=== PATIENT | female | born 1940 | race Caucasian/White ===

== ENCOUNTER → 2016-07-23 | Outpatient (CLI) | payer MEDICARE, BC ==
[~2016-07-23] MED LIST: ASPI325T32 PO; NEBI5TAB9 PO; PANT40TA3 PO; PROBIOTIC PO; RALO60TA12 PO; TRAM-40 PO
--- NOTE | 2016-07-23 14:33 | RADRPT ---
PROCEDURE: XR pelvis/left hip. CLINICAL INDICATION: Hip pain TECHNIQUE: AP pelvis/AP and lateral left hip views performed. COMPARISON: 04/21/2015 FINDINGS: There is a left total hip replacement. There is no evidence of loosening of the prosthesis. There is mild right hip osteoarthrosis. This is associated with joint space narrowing, subchondral s clerosis and osteophytosis. There is normal osseous mineralization. No fractures or osseous lesion s are identified. The soft tissues are unremarkable. IMPRESSION: Left total hip replacement. Mild right hip osteoarthrosis. RPTAT: [facility] .Storm Bender MD, Date Time Electronically viewed and signed by .Storm Bender MD, on 07/23/2016 14:32 .B/
== END | disposition home or self-care (01) ==
LOC: HKI 14:00
PROVIDERS: ATTEND Orthopaedic Surgery
DX: M51.36 Other intervertebral disc degeneration, lumbar region (principal); M54.16 Radiculopathy, lumbar region; Z96.642 Presence of left artificial hip joint
CPT/HCPCS: 73502; G0463